=== PATIENT | female | born 1955 | race African-American/Black ===

== ENCOUNTER 2017-02-03 13:11 | Emergency (ER) | payer BC ==
[~2017-02-03] VITALS: Ht 162.6 cm; Wt 72.6 kg
[2017-02-03 13:30] VITALS: BP 139/91
[2017-02-03] MEDS ORDERED: NAPR-677 PO (14:04)
--- NOTE | 2017-02-03 16:18 | PHYS DOC ---
Past Medical History Past Medical History: No Pertinent History Past Surgical History: No Surgical History Alcohol Use: Heavy Drug Use: None Adult General Chief Complaint Chief Complaint: KNEE SWELLING HPI HPI Patient is a 61 year old female who presents with HEENT to bilateral knees. Patient states that she has had long-term chronic knee pain. 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 She states that she took off work due to knee pain and needs a work note to return. She also had taken some naproxen sodium that helped with her pain and is requesting a prescription for that medication. Review of Systems Review of Systems Constitutional: Denies fever or chills [] Respiratory: Denies cough or shortness of breath [] Cardiovascular: No additional information not addressed in HPI [] Musculoskeletal: See HPI Integument: Denies rash or skin lesions [] Neurologic: Denies headache, focal weakness or sensory changes [] Endocrine: Denies polyuria or polydipsia [] All other systems were reviewed and found to be within normal limits, except as documented in this note. Allergies Allergies Allergies Coded Allergies Type Severity Reaction Last Updated Verified No Known Drug Allergies 02/03/17 No Physical Exam Physical Exam Constitutional: Well developed, well nourished, no acute distress, non-toxic appearance. [] Cardiovascular:Heart rate regular rhythm, no murmur [] Lungs & Thorax: Bilateral breath sounds clear to auscultation [] Skin: Warm, dry, no erythema, no rash. [] Back: No tenderness, no CVA tenderness. [] Extremities: mild tenderness, no cyanosis, no clubbing, ROM intact, mild edema to the patient's right knee, crepitus noted. [] Neurologic: Alert and oriented X 3, normal motor function, normal sensory function, no focal deficits noted. [] Psychologic: Affect normal, judgement normal, mood normal. [] Current Patient Data Vital Signs Vital Signs Date Time Temp Pulse Resp B/P (MAP) Pulse Ox O2 Delivery O2 Flow Rate FiO2 02/03/17 13:30 98.2 93 16 96 Room Air 98.2 EKG EKG [] Radiology/Procedures Radiology/Procedures [] Course & Med Decision Making Course & Med Decision Making Pertinent Labs and Imaging studies reviewed. (See chart for details) []1. Knee pain 2. Need for work note The patient was given a return to work note. She was also provided with a prescription for Naprosyn sodium. She is to return to the ED if worsening or follow-up with her primary care provider for evaluation of this chronic joint pain. Jonas Disclaimer Jonas Disclaimer This electronic medical record was generated, in whole or in part, using a voice recognition dictation system. Departure Departure Impression: Primary Impression: Knee pain Disposition: HOME, SELF-CARE Condition: STABLE Referrals: NO PCP (PCP) Patient Instructions: Knee Pain, [id number] Additional Instructions: Follow-up with your primary care provider in one week if not improving. Return to the ED if worsening. Make sure you have feeling her stomach when taking the pain medication. Scripts Naproxen Sodium (NAPROXEN SODIUM) 550 Mg Tablet 1 TAB PO BID Y for PAIN, #30 TAB Prov: RUBEN SILVESTRE APRN 02/03/17 RUBEN SILVESTRE APRN Feb 03, 2017 16:18
== END 2017-02-03 14:08 | disposition home or self-care (01) ==
LOC: ER 13:11
DX: G89.29 Other chronic pain (principal); M25.561 Pain in right knee
CPT/HCPCS: 99282

== ENCOUNTER 2017-05-05 11:07 | Emergency (ER) | payer BC | END 2017-05-05 11:55 | disposition home or self-care (01) | LOC: ER 11:07 | DX: M17.12 Unilateral primary osteoarthritis, left knee (principal) | CPT/HCPCS: 99283 ==

== ENCOUNTER 2020-04-16 16:55 | Emergency (ER) | payer BC ==
[~2020-04-16] VITALS: Ht 165.1 cm; Wt 65.9 kg
[~2020-04-16 16:55] MED LIST: NAPR-677 PO; NAPR-683 PO; TRAM50TA PO
[2020-04-16 18:03] VITALS: BP 156/104
--- NOTE | 2020-04-16 18:30 | PHYS DOC ---
Past Medical History Past Medical History: Arthritis Past Surgical History: No Surgical History Smoking Status: Current Every Day Smoker Alcohol Use: Heavy Drug Use: None General Adult EDM: Chief Complaint: LOWER EXTREMITY SWELLING HPI: HPI: Patient is a 64 year old female who presents with right knee swelling and stiffness for the last 2 days. Patient states it hurts to walk. She states that she just sitting there does not hurt until she has to try to walk on it. 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 Patient has arthritis to the left knee and arthritis in her hands bilaterally with the formation at the joints and swelling. Patient states she does not have an orthopedic doctor and she knows she has arthritis. Patient denies tenderness to the extremity, fever, skin color change, coolness to the extremity, focal weakness, injury. Review of Systems: Review of Systems: Constitutional: Denies fever or chills. [] Eyes: Denies change in visual acuity. [] HENT: Denies nasal congestion or sore throat. [] Respiratory: Denies cough or shortness of breath. [] Cardiovascular: Denies chest pain. + Right knee swelling edema. [] GI: Denies abdominal pain, nausea, vomiting, bloody stools or diarrhea. [] : Denies dysuria. [] Musculoskeletal: Denies back pain. + Right knee joint pain and stiffness. [] Integument: Denies rash. [] Neurologic: Denies headache, focal weakness or sensory changes. [] Endocrine: Denies polyuria or polydipsia. [] Lymphatic: Denies swollen glands. [] Psychiatric: Denies depression or anxiety. [] Heart Score: Risk Factors: Risk Factors: DM, Current or recent (<one month) smoker, HTN, HLP, family history of CAD, obesity. Risk Scores: Score 0 - 3: 2.5% MACE over next 6 weeks - Discharge Home Score 4 - 6: 20.3% MACE over next 6 weeks - Admit for Clinical Observation Score 7 - 10: 72.7% MACE over next 6 weeks - Early Invasive Strategies Allergies: Allergies: Allergies Coded Allergies Type Severity Reaction Last Updated Verified No Known Drug Allergies 02/03/17 No Physical Exam: PE: Constitutional: Well developed, well nourished, no acute distress, non-toxic appearance. [] HENT: Normocephalic, atraumatic, bilateral external ears normal, oropharynx moist, no oral exudates, nose normal. [] Eyes: PERRLA, EOMI, conjunctiva normal, no discharge. [] Neck: Normal range of motion, no tenderness, supple, no stridor. [] Cardiovascular:Heart rate regular rhythm, no murmur [] Lungs & Thorax: Bilateral breath sounds clear to auscultation [] Abdomen: Bowel sounds normal, soft, no tenderness, no masses, no pulsatile masses. [] Skin: Warm, dry, no erythema, no rash. [] Back: No tenderness, no CVA tenderness. [] Extremities: No tenderness, no cyanosis, no clubbing, right knee ROM limited but intact, right knee 1+ edema. [] Neurologic: Alert and oriented X 3, normal motor function, normal sensory function, no focal deficits noted. [] Psychologic: Affect normal, judgement normal, mood normal. [] Current Patient Data: Vital Signs: Vital Signs Date Time Temp Pulse Resp B/P (MAP) Pulse Ox O2 Delivery O2 Flow Rate FiO2 04/16/20 18:00 97.4 94 20 156/105 (122) 97 Room Air 97.4 EKG: EKG: [] Radiology/Procedures: Radiology/Procedures: [] Impression: [facility] [address] [place] [address] IMAGING REPORT Signed PATIENT: NUNO LICEA ACCOUNT: [id number] : 1955 LOCATION: ER AGE: 64 SEX: F EXAM STATUS: REG ER ORD. PHYSICIAN: DANYEL WOODARD APRN REASON: pain, swelling, NO KNOW INJURY.. PROCEDURE: KNEE RIGHT 4V 4 view right knee HISTORY: Pain and swelling AP lateral oblique and sunrise views right knee There is marked marginal spurring of all 3 compartments. There is loss of joint space in the medial compartment. There is no lytic destructive changes seen. There is no effusion seen on the lateral view. IMPRESSION: 1. Severe osteoarthrosis. 2. Moderate joint effusion. Electronically signed by: Nasima Carlisle III, MD (04/16/2020 7:11 PM) [facility] DICTATED and SIGNED BY: NASIMA CARLISLE III, MD DATE: 04/16/20 [id number] 0 Course & Med Decision Making: Course & Med Decision Making Pertinent Labs and Imaging studies reviewed. (See chart for details) See HPI. Alert and oriented x4. Patient can fully bend the knee but cannot fully extend the knee due to swelling. Skin pink warm and dry. Popliteal pulse strong and present. There is no swelling to the rest of the joint. No calf tenderness. Denies any numbness or tingling. No focal weakness. No tenderness to the joint and no redness. Afebrile. Speaks in full complete sentences. Ambulatory with a steady gait but limping on the right knee. [] Dragon Disclaimer: Dragon Disclaimer: This electronic medical record was generated, in whole or in part, using a voice recognition dictation system. Departure Departure Impression: Primary Impression: Arthritis Additional Impression: Knee pain, left Qualified Codes: M25.562 - Pain in left knee Disposition: 01 DC HOME SELF CARE/HOMELESS Condition: STABLE Referrals: NAMITA EDMOND MD (PCP) NASIMA ALVARES MD Patient Instructions: Osteoarthritis Additional Instructions: Follow-up with an orthopedic doctor soon as possible. Take medication as prescribed and with food. Scripts Naproxen (NAPROXEN) 500 Mg Tablet 1 TAB PO BID for pain for 30 Days, #60 TAB 0 Refills Prov: DANYEL WOODARD APRN 04/16/20 Methylprednisolone (MEDROL) 4 Mg Tab.ds.pk 1 PKG PO UD, #1 PKG Prov: DANYEL WOODARD SURVEY INSTRUMENT OPERATOR 04/16/20 Hydrocodone Bit/Acetaminophen (HYDROCODONE-APAP 5-325 ) 1 Tab Tablet 1 TAB PO PRN Q6HRS PRN for PAIN, #10 TAB 0 Refills Prov: DANYEL WOODARD SURVEY INSTRUMENT OPERATOR 04/16/20 DANYEL WOODARD APRN Apr 16, 2020 18:30
--- NOTE | 2020-04-16 19:13 | RAD ---
4 view right knee HISTORY: Pain and swelling AP lateral oblique and sunrise views right knee There is marked marginal spurring of all 3 compartments. There is loss of joint space in the medial c ompartment. There is no lytic destructive changes seen. There is no effusion seen on the lateral view . IMPRESSION: 1. Severe osteoarthrosis. 2. Moderate joint effusion. Electronically signed by: Ike Olivia III, MD (04/16/2020 7:11 PM) [facility]
[2020-04-16] MEDS ORDERED: METH4TAB2 PO (19:19)
[2020-04-16] MEDS ORDERED: NAPR-514 PO (19:19)
[2020-04-16] MEDS ORDERED: HYDR-2761 PO (19:19)
== END 2020-04-16 19:30 | disposition home or self-care (01) ==
LOC: ER 16:55
DX: M17.11 Unilateral primary osteoarthritis, right knee (principal); M25.562 Pain in left knee; F17.200 Nicotine dependence, unspecified, uncomplicated; F10.20 Alcohol dependence, uncomplicated; Y90.9 Presence of alcohol in blood, level not specified
CPT/HCPCS: 73564; 99283